=== PATIENT | female | born 1940 | race Caucasian/White ===

== ENCOUNTER 2019-10-29 17:35 | Emergency (ER) | payer OTHER ==
[~2019-10-29] VITALS: Ht 165.1 cm; Wt 65.3 kg
[~2019-10-29 17:35] MED LIST: ARMOUR THYROID30 MG PO; METOPROLOL SUCC50 M1 PO; ZESTRIL5 MG PO
[2019-10-29 17:44] VITALS: Ht 165.1 cm; Wt 65.3 kg
[2019-10-29 21:16] VITALS: BP 113/39
== END 2019-10-29 21:16 | disposition home or self-care (01) ==
LOC: ED 17:35
DX: I16.0 Hypertensive urgency (principal); Z88.0 Allergy status to penicillin; Z88.1 Allergy status to other antibiotic agents